=== PATIENT | male | born 1980 | race Caucasian/White ===

== ENCOUNTER 2017-03-14 12:57 | Emergency (ER) | payer MEDICAID ==
[~2017-03-14] VITALS: Ht 172.7 cm; Wt 89.1 kg
[~2017-03-14 12:57] MED LIST: DDAVP; DESMOPRESSIN A0.2 MG PO; DESYREL 50MG50 MG PO; DETROL LA4 MG PO; INVEGA3 MG PO; LAMICTAL XR25 MG PO; LAMICTAL XR50 MG PO; NORCO 325 MG-51 TAB PO; RISPERDAL 0.20.25 MG PO; TRILEPTAL150 MG PO; ZOLOFT; detrol LA
[2017-03-14 12:58] VITALS: TEMP 98.1
[2017-03-14] MEDS ORDERED: LAMICTAL XR300 MG PO (13:26)
[2017-03-14 13:51] LABS: BASO % 0.6 % (0.0-2.0); EOS # 0.1 (0.0-0.7); EOS % 1.7 % (0-4.0); GRAN # 4.7 (1.4-6.5); HEMATOCRIT 45.7 % (42.0-52.0); HEMOGLOBIN 16.4 g/dl (13.5-18.0); LYMPH # 1.2 (1.2-3.4); LYMPH % 18.9 % (20.0-51.0); MEAN CELL VOLUME 86 fl (80.0-100.0); MEAN CORPUSCULAR HEMOGLOBIN 31 pg (27.0-31.0); MEAN CORPUSCULAR HGB CONC 36 g/dl (33.0-37.0); MEAN PLATELET VOLUME 8.9 fl (7.4-10.4); MONO # 0.3 (0.1-0.6); MONO % 5.3 % (1.7-9.3); PLATELET COUNT 240 K/mm3 (130-400); REDCELL DISTRIBUTION WIDTH-CV 11.8 % (11.5-14.5); WHITE BLOOD COUNT 6.4 K/mm3 (4.8-10.8)
[2017-03-14 14:01] LABS: ADJUSTED CALCIUM 8.6 mg/dL (8.4-10.2); ALBUMIN 4.5 gm/dL (3.5-5.0); CREATININE, serum 0.95 mg/dL (0.66-1.25); POTASSIUM 3.8 mmol/L (3.4-5.0); TOTAL PROTEIN 7.5 gm/dL (6.4-8.2)
[2017-03-14] MEDS ORDERED: ZOFRAN ODT4 MG PO (14:50)
[2017-03-14] MEDS ORDERED: ANTIVERT 25MG25 MG PO (14:50)
[2017-03-14 14:56] VITALS: BP 118/59; PULSE 72
== END 2017-03-14 15:11 | disposition home or self-care (01) ==
LOC: COL.ER 12:57
PROVIDERS: Emergency Medicine
DX: R42 Dizziness and giddiness (principal); R11.2 Nausea with vomiting, unspecified; G80.9 Cerebral palsy, unspecified; G40.909 Epilepsy, unspecified, not intractable, without status epilepticus
CPT/HCPCS: J7030